=== PATIENT | male | born 1945 | race Caucasian/White ===

== ENCOUNTER 2017-02-17 16:28 | Observation (INO) | payer MEDICARE, BC ==
--- NOTE | 2017-02-17 16:49 | Emergency Department Record ---
History of Present Illness - General Chief Complaint: Chest Pain Stated Complaint: CHEST PAIN Time Seen by Provider: 02/17/17 16:38 Source: Patient Mode of Arrival: Wheelchair Limitations: Physical limitation - History of Present Illness Initial Comments: The patient is here due to upper abdominal pain for the last 45 minutes that has now resolved. Initially the patient complained of chest pain but now it appears to be abdominal pain. He denied any SOB, ERNESTO, or sweating with the pain. He also denied any nausea, vomiting, or diarrhea. 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 Due to the CVA he does have trouble communicating. Onset/Timin -: Minutes(s) Onset: During rest Severity: Moderate Severity scale (1-10): 6 - Related Data Allergies Allergy/AdvReac Type Severity Reaction Status Date / Time No Known Drug Allergies Allergy Verified 04/19/16 08:12 Travel Screening - Travel/Exposure Within Last 30 Days Have you traveled within the last 30 days?: No - Travel/Exposure Within Last Year Have you traveled outside the [place] in the last year?: No - Additonal Travel Details Have you been exposed to anyone with a communicable illness?: No Review of Systems Constitutional: Denies: Chills, Fever Eyes: Denies: Eye discharge ENT: Denies: Congestion Respiratory: Denies: Cough, Dyspnea Past Medical History - SOCIAL HISTORY Smoking Status: Former smoker Alcohol Use: None Drug Use: None - RESPIRATORY Hx Respiratory Disorders: No - CARDIOVASCULAR Hx Cardio Disorders: Yes Hx Cardiac Cath: Yes Hx Hypertension: Yes Hx Coronary Stent: Yes Hx Percutaneous Transluminal Coronary Angioplasty (PTCA): Yes (10 yrs ago) - NEURO Hx Neuro Disorders: Yes Hx CVA: Yes 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 negative: Tenderness - Respiratory Respiratory exam: Normal lung sounds bilaterally. negative: Respiratory distress - Cardiovascular Cardiovascular Exam: Regular rate, Normal rhythm, Normal heart sounds - GI/Abdominal GI/Abdominal exam: Soft, Normal bowel sounds. negative: Tenderness - Extremities Extremities exam: Normal inspection, Normal capillary refill. negative: Tenderness - Neurological Neurological exam: Alert, Motor sensory deficit (R sided weakness (chronic)) Course Vital Signs 02/17/17 16:32 Temperature 97.9 F Pulse Rate 60 Respiratory 18 Rate Blood Pressure 161/76 Pulse Ox 97 - Reevaluation(s) Reevaluation #1: The patient is doing very well at this time. He is pain free and resting comfortably. 02/17/17 17:29 Reevaluation #2: The patient is doing very well at this time. He is pain free and denies any problems. Again it is very difficult to determine what exact type of pain he was experiencing but again it has resolved. I did discuss the need to keep the patient in the hospital overnight and he agreed to the plan. I also did discuss the case with Cassy BEACH) and she accepted the patient for Dr. Davidson. 02/17/17 18:00 Medical Decision Making - Data Complexity MDM Data: Labs Ordered and/or Reviewed, X-Ray Ordered and/or Reviewed, EKG Ordered and/or Reviewed - Lab Data Result diagrams: 02/18/17 06:12 02/18/17 06:12 - EKG Data -: EKG Interpreted by Me EKG: No Acute Changes, Unchanged From Previous - Radiology Data Radiology results: Report reviewed (CXR: No acute changes.) Disposition Disposition: Admit Clinical Impression: Chest pain at rest Disposition: Still a Patient at [facility] Decision to Admit: Admit from ER Decision to Admit Date: 02/17/17 Decision to Admit Time: 18:02 Accepting Physician: Lety Time Discussed w/Accepting Physician: 18:02 Condition: (2) Stable Time of Disposition: 18:02 Quality - Quality Measures Quality Measures: N/A - Blood Pressure Screening View Details: Yes Does Patient Have Any of the Following: Active Dx of HTN Blood Pressure Classification: Hypertensive Reading Systolic Measurement: 161 Diastolic Measurement: 76 Screening for High Blood Pressure: Patient Exclusion, Hx of HTN [G9744] Pre-Hypertensive Follow-up Interventions: Referral to alternative/primary care provider.
[2017-02-17 17:10] LABS: BASO % 0.4 % (0-6); EOS % 2.1 % (0-6); GRAN % 55.4 % (47-80); HEMATOCRIT 43.6 % (42.0-52.0); HEMOGLOBIN 15.4 gm/dl (14.0-18.0); LYMPH % 31.3 % (16-45); MEAN CORPUSCULAR HEMOGLOBIN 30.4 pg (27-33); MEAN CORPUSCULAR HGB CONC 35.3 g/dl (32-36); MEAN PLATELET VOLUME 10.1 fl (7.4-10.4); MONO % 10.8 % (0-9); PLATELET COUNT 197 K/uL (130-400); RED BLOOD COUNT 5.07 M/uL (4.40-5.70); RED CELL DISTRIBUTION WIDTH 13.6 % (11.5-14.5)
[2017-02-17 17:21] LABS: INR 1.05; PARTIAL THROMBOPLASTIN TIME 25.7 SECONDS (24.5-39.1); PROTHROMBIN TIME (PATIENT) 11.3 SECONDS (9.5-12.1)
[2017-02-17 17:28] LABS: ALBUMIN 4.6 g/dL (4.0-5.0); ALKALINE PHOSPHATASE 24 U/L (40-129); ALT/SGPT 21 U/L (<41); AST/SGOT 23 U/L (10.0-50.0); BLOOD UREA NITROGEN 22 mg/dL (8-23); CKMB 3.6 ng/mL (<6.73); CREATINE PHOSPHOKINASE 116 U/L (39-308); CREATININE 0.9 mg/dL (0.7-1.2); EST GLOMERULAR FILTRATION RATE > 60 mL/min; GLUCOSE,RANDOM 77 mg/dL (74-109); LIPASE 31 U/L (13-60); TOTAL PROTEIN 7.4 g/dL (6.6-8.7)
[2017-02-17 17:29] LABS: BILIRUBIN,DIRECT < 0.2 mg/dL (0-0.3)
[2017-02-17 17:40] LABS: TROPONIN I < 0.30 ng/mL (0.00-0.300)
[2017-02-17] MEDS ORDERED: POTASSIUM CHLORIDE 20 MEQ TABLET PO ONE (17:47)
[2017-02-17] MEDS ORDERED: ASPIRIN 325 MG TABLET PO ONE (18:04)
[2017-02-17] MEDS ORDERED: ACETAMINOPHEN 500 MG TABLET PO PRN (19:22)
[2017-02-17] MEDS ORDERED: [UNRECOGNIZED DRUG - SUPPLY] MC SCH (19:22)
[2017-02-17] MEDS: CHLORTHALIDONE 25 MG TABLET PO SCH (21:38)
[2017-02-17] MEDS: ATENOLOL 50 MG TABLET PO SCH (21:38)
[2017-02-17] MEDS ORDERED: SIMVASTATIN 20 MG TABLET PO SCH (22:00)
[2017-02-17] MEDS ORDERED: GABAPENTIN 100 MG CAPSULE PO SCH (22:00)
--- NOTE | 2017-02-18 06:37 | History & Physical ---
History of Present Illness - Date of Service Date of Service for History & Physical: 02/18/17 - History of Present Illness Admitting Diagnosis: 1. Chest and Abdominal pain, R/O AL. History of Present Illness: 71 yo male admitted with cc of chest/ upper abdominal pain. pmhx of cva w/ subsequent right sided paralysis and expressive aphasia, h/o AL (s/p 3 stents, most recently, 1 stent placed 02/2016). According to ED documentation, patient presented with 45 minutes of upper abd/ chest pain. This resolved on its own. He denied any SOB, ERNESTO, or sweating with the pain. He also denied any nausea, vomiting, or diarrhea. Upon presentation, HR 60, BP 161/76, RR 18, Ox 97% RA. CBC/CMP relatively unremarkable. Potassium 3.1. lipase WNL. CXR: borderline CMG w/o pulm HTN, NAP ow. EKG:sinus rhythm, no new ischemic changes. Patient given regular ASA and 40 mEq of Potassium. Placed on groundwater monitoring technician and admitted for medical management. 02/18- patient sitting up comfortably in bed with daughter at bedside. he denies any CP/AP since prior to arrival to the ED. states appetite is normal and tolerated breakfast. Normal GI/ function. no n/v, abd pain, fever, chills, diaphoresis, cough, congestion, davila, dizziness, lightheadedness, visual changes or new weakness. Patient reports follow with both [facility] and [facility]. States he had one cardiac stent placed while at [facility]. PCP: [facility] Travel Screening - Travel/Exposure Within Last 30 Days Have you traveled within the last 30 days?: No - Travel/Exposure Within Last Year Have you traveled outside the [place] in the last year?: No - Additonal Travel Details Have you been exposed to anyone with a communicable illness?: No Review of Systems Constitutional: Denies: Chills, Fever Eyes: Denies: Eye discharge ENT: Denies: Congestion Respiratory: Denies: Cough, Dyspnea Cardiovascular: Denies: Chest pain, Dyspnea on exertion, Edema Gastrointestinal: Denies: Abdominal pain, Diarrhea, Nausea, Vomiting Genitourinary: Denies: Dysuria Musculoskeletal: Denies: Back pain Neurological: Denies: Confusion, Headache Hematological/Lymphatic: Denies: Easy bruising Past Medical History - SOCIAL HISTORY Smoking Status: Former smoker Alcohol Use: None Drug Use: None - RESPIRATORY Hx Respiratory Disorders: No - CARDIOVASCULAR Hx Cardio Disorders: Yes Hx Cardiac Cath: Yes Hx Hypertension: Yes Hx Coronary Stent: Yes Hx Percutaneous Transluminal Coronary Angioplasty (PTCA): Yes (10 yrs ago) - NEURO Hx Neuro Disorders: Yes Hx CVA: Yes 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) - GI Hx GI Disorders: No - Hx Genitourinary Disorders: No - ENDOCRINE Hx Endocrine Disorders: No - MUSCULOSKELETAL Hx Musculoskeletal Disorders: No - PSYCH Hx Psych Problems: No - HEMATOLOGY/ONCOLOGY Hx Hematology/Oncology Disorders: No Family Medical History Any Significant Family History?: No H&P Meds/Allergies - Allergies Allergies: Allergies Allergy/AdvReac Type Severity Reaction Status Date / Time No Known Drug Allergies Allergy Verified 04/19/16 08:12 - Active Medications Active Medications: Current Medications Acetaminophen (Tylenol 500mg Tab) 500 mg PO Q6H PRN PRN Reason: PAIN/TEMP Aspirin (Ecotrin (Ec)) 325 mg PO DAILY [facility] Atenolol (Tenormin) 50 mg PO BID [facility] Last Admin: 02/17/17 21:38 Dose: 50 mg Chlorthalidone (Chlorthalidone) 25 mg PO BID [facility] Last Admin: 02/17/17 21:38 Dose: 25 mg Clopidogrel Bisulfate (Plavix) 75 mg PO DAILY [facility] Gabapentin (Neurontin) 200 mg PO QHS [facility] Last Admin: 02/17/17 21:38 Dose: 200 mg Simvastatin (Zocor) 20 mg PO QHS [facility] Last Admin: 02/17/17 21:38 Dose: 20 mg Physical Exam - Vital Signs Vital Signs: Vital Signs - Last 24 Hrs Temp Pulse Resp BP Pulse Ox 02/18/17 06:10 98.2 F 55 L 18 128/65 94 L 02/18/17 06:05 96 02/18/17 03:35 97.7 F 52 L 18 135/67 95 02/17/17 21:59 61 20 - General General Appearance: Alert, Cooperative, No acute distress Limitations: Physical limitation (2/2 right sided paralysis) - Head Head exam: Atraumatic, Normocephalic - Eye Eye exam: Normal appearance, PERRL - Neck Neck exam: Normal inspection, Full ROM. negative: Tenderness - Respiratory Respiratory exam: Normal lung sounds bilaterally. negative: Respiratory distress - Cardiovascular Cardiovascular Exam: Regular rate, Normal rhythm, Normal heart sounds - GI/Abdominal GI/Abdominal exam: Soft, Normal bowel sounds. negative: Tenderness - Extremities Extremities exam: Normal inspection, Normal capillary refill. negative: Tenderness - Neurological Neurological exam: Alert, Motor sensory deficit (R sided weakness (chronic)) Results - Labs Result Diagrams: 02/18/17 06:12 02/18/17 06:12 Labs Last 24 Hours: Laboratory Results - last 24 hr 02/17/17 02/17/17 21:53 21:53 CK-MB (CK-2) 3.5 Troponin I < 0.30 VTE H&P Assessment - Risk for VTE Risk for VTE: Yes Risk Level: Moderate Risk Assessment Date: 02/18/17 Risk Assessment Time: 10:00 VTE Orders Placed or Will Be Placed: Yes Plan - Detailed Diagnosis and Plan (1) Chest pain at rest Current Visit: Yes Status: Acute Base Code: R07.9 - CHEST PAIN, UNSPECIFIED Comment: 02/18- MSK vs. GI. vs. Cardiac vs. other? Patient reports epigastric/chest pain prior to arrival to the ED. Aggravated by thoracic spine back brace. relieved one back brace was removed. EKG: no acute changes, CXR: borderline CMG w/o pulm htn, NAP. - regular ASA given in ED - home medications continued - CE negative x 3 - potassium normalized follow 40 mEq of PO potassium - Cardiac consult - groundwater monitoring technician - VS Q4H - cardiac diet - anticipate D/C if cleared by Cardiology (2) History of CVA (cerebrovascular accident) Current Visit: Yes Status: Acute Base Code: Z86.73 - PRSNL HX OF TIA (TIA), AND CEREB INFRC W/O RESID DEFICITS Comment: 02/18- continue home medications. no change from baseline. (3) Full code status Current Visit: Yes Status: Acute Base Code: Z78.9 - OTHER SPECIFIED HEALTH STATUS Comment: 02/18- pt is full code
[2017-02-18 06:43] LABS: BASO % 0.5 % (0-6); EOS % 2.9 % (0-6); GRAN % 60.6 % (47-80); HEMATOCRIT 43.6 % (42.0-52.0); HEMOGLOBIN 15.3 gm/dl (14.0-18.0); LYMPH % 23.9 % (16-45); MEAN CELL VOLUME 86.5 fl (81-97); MEAN CORPUSCULAR HEMOGLOBIN 30.4 pg (27-33); MEAN CORPUSCULAR HGB CONC 35.1 g/dl (32-36); MEAN PLATELET VOLUME 10.3 fl (7.4-10.4); MONO % 12.1 % (0-9); PLATELET COUNT 183 K/uL (130-400); RED BLOOD COUNT 5.04 M/uL (4.40-5.70); RED CELL DISTRIBUTION WIDTH 13.6 % (11.5-14.5); WHITE BLOOD COUNT W/O DIFF 5.5 K/uL (4.2-12.2)
[2017-02-18 06:45] LABS: ALB/GLOB RATIO 1.4 (1.1-1.8); ALBUMIN 3.9 g/dL (4.0-5.0); ALKALINE PHOSPHATASE 22 U/L (40-129); ALT/SGPT 18 U/L (<41); AST/SGOT 21 U/L (10.0-50.0); BLOOD UREA NITROGEN 17 mg/dL (8-23); CREATININE 0.8 mg/dL (0.7-1.2); EST GLOMERULAR FILTRATION RATE > 60 mL/min; GLUCOSE,RANDOM 109 mg/dL (74-109); TOTAL PROTEIN 6.6 g/dL (6.6-8.7)
--- NOTE | 2017-02-18 07:21 | RADIOLOGY REPORT ---
EXAM: PORTABLE CHEST HISTORY: ACUTE ONSET OF CHEST PAIN. TECHNIQUE: A single mobile upright view of the chest was obtained. Comparison: Two view chest radiographic examination dated 03/03/16. FINDINGS: The heart projects at the upper limits of normal in size. No pulmonary venous hypertension is seen. No new lung consolidation, costophrenic angle blunting or pneumothorax is seen. There are degenerative changes of the visualized spine and shoulder girdles. The thoracic aorta is tortuous and atherosclerotic. IMPRESSION: BORDERLINE CARDIOMEGALY WITHOUT PULMONARY VENOUS HYPERTENSION. NO EVIDENCE OF AN ACUTE PULMONARY PROCESS. JOB NUMBER: [id number] MTDD
[2017-02-18] MEDS: ATENOLOL 50 MG TABLET PO SCH (09:59)
[2017-02-18] MEDS ORDERED: CLOPIDOGREL 75MG TABLET PO SCH (10:00)
[2017-02-18] MEDS ORDERED: TICAGRELOR 60 MG PO SCH (10:00)
[2017-02-18] MEDS ORDERED: ASPIRIN 325 MG TAB ENTERIC-COATED PO SCH (10:00)
[2017-02-18] MEDS: CHLORTHALIDONE 25 MG TABLET PO SCH (10:00)
--- NOTE | 2017-02-18 11:26 | Discharge Summary ---
Providers Discharge Summary Date: 02/18/17 Date of admission: 02/17/17 20:46 Expected Date of Discharge: 02/18/17 Attending physician: Gomez Davidson Consults: Consult Orders 02/18/17 10:24 Consult - Cardiology NOW Consulting Provider: Rickie Prasad Physician Instructions: Reason For Exam: chest pain Does pt have current mechanical assembly technician?: Unknown Physical Exam - Vital Signs Vital Signs: Vital Signs - Last 24 Hrs Temp Pulse Resp BP Pulse Ox 02/18/17 10:00 97.8 F 58 L 18 126/71 95 02/18/17 09:00 16 02/18/17 06:10 98.2 F 55 L 18 128/65 94 L 02/18/17 06:05 96 02/18/17 03:35 97.7 F 52 L 18 135/67 95 02/17/17 21:59 61 20 - General General Appearance: Alert, Cooperative, No acute distress Limitations: Physical limitation (2/2 right sided paralysis) - Head Head exam: Atraumatic, Normocephalic - Eye Eye exam: Normal appearance, PERRL - Neck Neck exam: Normal inspection, Full ROM. negative: Tenderness - Respiratory Respiratory exam: Normal lung sounds bilaterally. negative: Respiratory distress - Cardiovascular Cardiovascular Exam: Regular rate, Normal rhythm, Normal heart sounds - GI/Abdominal GI/Abdominal exam: Soft, Normal bowel sounds. negative: Tenderness - Extremities Extremities exam: Normal inspection, Normal capillary refill. negative: Tenderness - Neurological Neurological exam: Alert, Motor sensory deficit (R sided weakness (chronic)) Hospitalization - Hospitalization Admission Diagnosis: 1. Chest and Abdominal pain, R/O OK. - Problem List/Discharge Diagnosis (1) Chest pain at rest Current Visit: Yes Status: Acute Base Code: R07.9 - CHEST PAIN, UNSPECIFIED Comment: 02/18- MSK vs. GI. vs. Cardiac vs. other? Patient reports epigastric AP/chest pain prior to arrival to the ED. I suspect related to his thoracic back brace as pain alleviated once this was removed. EKG: no acute ischemic changes, CXR: borderline CMG w/o pulm htn, NAP. CE negative x 3. - continue home medications - CE negative x 3 - potassium normalized follow 40 mEq of PO potassium - patient evaluated by Dr. Prasad today, who agree's with follow up as outpatient. - patient will f/up with ZACHARY Najera at 1020. - he will talk with family re which cardiology group he'd like to follow with. I ask that he call and schedule a follow up visit within 4-6 weeks. (2) History of CVA (cerebrovascular accident) Current Visit: Yes Status: Acute Base Code: Z86.73 - PRSNL HX OF TIA (TIA), AND CEREB INFRC W/O RESID DEFICITS Comment: 02/18- continue home medications. (3) Full code status Current Visit: Yes Status: Acute Base Code: Z78.9 - OTHER SPECIFIED HEALTH STATUS Comment: 02/18- pt remained full code - Hospitalization Course Disposition: Home, Self-Care Hospital Course: 71 yo male admitted with cc of chest/ upper abdominal pain. pmhx of cva w/ subsequent right sided paralysis and expressive aphasia, h/o OK (s/p 3 stents, most recently, 1 stent placed 02/2016). According to ED documentation, patient presented with 45 minutes of upper abd/ chest pain. This resolved on its own. He denied any SOB, ERNESTO, or sweating with the pain. He also denied any nausea, vomiting, or diarrhea. Upon presentation, HR 60, BP 161/76, RR 18, Ox 97% RA. CBC/CMP relatively unremarkable. Potassium 3.1. lipase WNL. CXR: borderline CMG w/o pulm HTN, NAP ow. EKG:sinus rhythm, no new ischemic changes. Patient given regular ASA and 40 mEq of Potassium. Placed on panel monitor and admitted for medical management. 02/18- patient sitting up comfortably in bed with daughter at bedside. he denies any CP/AP since prior to arrival to the ED. states appetite is normal and tolerated breakfast. Normal GI/ function. no n/v, abd pain, fever, chills, diaphoresis, cough, congestion, davila, dizziness, lightheadedness, visual changes or new weakness. Patient reports follow with both [facility] and [facility]. States he had one cardiac stent placed while at [facility] [place]. PCP: C 02/18- evaluated by Dr. Osmar MD ([facility]). Abnormal Labs: Abnormal Lab Results 02/18/17 02/18/17 Range/Units 06:12 06:12 Monocytes % 12.1 H (0-9) % Alkaline Phosphatase 22 L (40-129) U/L Albumin 3.9 L (4.0-5.0) g/dL Condition at Discharge: (2) Stable Discharge Medications - Discharge Medications Home Medications: Ambulatory Orders Multivitamin [Multivitamins] 1 each PO DAILY tab 06/16/15 [Last Taken 04/19/16] Discharge Plan - Discharge Instructions Activity at Discharge: Increase Activity as Tolerated Diet at Discharge: Regular Diet Additional Instructions: Continue all home medications. Follow up with ZACHARY Najera, at 1020 at the [facility] a cardiology group you'd like to continue to follow with. I ask that you contact their office immediately to schedule a hospital follow up visit within 4-6 weeks. Return re any new or worsening symptoms. Quality Measures - Quality Measures Quality Measures: Advance Directives, Documentation of Current Medications in Medical Record, Elder Maltreatment Screen and Follow-Up Plan, Screening for High Blood Pressure and F/U Documented - Current Medications Quality Measure: Measure #130: Documentation of Current Medications Documentation of Current Medications: <Current Medications Documented/Reviewed> [G8427] - Blood Pressure Screening Quality Measure: Screening for High Blood Pressure and Follow-Up Documented Does Patient Have Any of the Following: No, Active Dx of HTN Blood Pressure Classification: Hypertensive Reading Systolic Measurement: 161 Diastolic Measurement: 76 Screening for High Blood Pressure: Patient Exclusion, Hx of HTN [G9744] - Advance Directives Quality Measure: Measure #47: Care Plan Advance Directives Established: No Advance Directives Information Provided To Patient: No Advance Directives on File: No Living Will: No Power of Performance Improvement Coordinator: No Advance Care Planning: <Care Plan/Decision Maker Documented; Discussed & Documented> [1123F] - Elder Abuse Suspicion Index Screening: Elder Abuse Suspicion Index Screening Rely on people for bathing, dressing, shopping, banking, etc: No Prevented from getting food, clothes, medication, etc: No Made to feel shamed or threatened by someone: No Forced to sign papers or use money against will: No Feel afraid, touched in ways not wanted or hurt physically: No Poor eye contact, withdrawn, malnourished, cuts or bruises: No Screening Result: Negative result EASI Reference Information: Giacomo GONZALEZ, Belinda C, Shantanu D, Judy Mckinnon.Development and validation of a tool to assist physicians identification of elder abuse: The Elder Abuse Suspicion Index (EASI ). Journal of Elder Abuse and Neglect, 2008; 20 (3): 276-300. - Elder Maltreatment Screen Quality Measures: Elder Maltreatment Screen and Follow-Up Plan Elder Maltreatment Screen: <Negative, No Follow-Up Plan Required> [G8734]
--- NOTE | 2017-02-18 12:20 | Medical Records Consult ---
DATE OF CONSULTATION: 02/18/2017 HISTORY OF PRESENT ILLNESS: The patient is a 71-year-old gentleman who was a well-established patient of ours last being seen in our office in June 2014. At that time, he was stable. Dr. Knuz was taking care of him. He had a normal nuclear stress test without any ischemia. He had previously had stents placed in 2005 by members of our group I believe. He had a significant stroke in 1988 with a residual right hemiparesis and expressive aphasia. He also has hyperlipidemia and hypertension. He was brought to the emergency room yesterday after experiencing chest pain at home. He was working at his workbench, had a support brace in place. He started having chest pain. He took it off and the chest pain resolved. He came to the emergency room and was admitted. EKG does not show any acute changes. Troponins are negative. His chest pain has not recurred. He apparently had an abnormal nuclear stress test about 6 months ago at [facility] and was transferred to [facility] and had a heart cath and received a stent. I do not have those records for review. He denies any recent PND or orthopnea. He is anxious to go home. ALLERGIES: None known. MEDICATIONS: According to our records: 1. Tenoretic 50/25 once a day. 2. Zetia 10 mg a day. 3. Pravastatin 40 mg a day. 4. Aspirin once a day. ADMITTING MEDICATIONS: 1. Aspirin 325 mg a day. 2. Atenolol 50 mg b.i.d. 3. Chlorthalidone 25 mg b.i.d. 4. Plavix 75 mg a day. 5. Simvastatin 20 mg a day. 6. Neurontin 200 mg a day. PAST MEDICAL HISTORY: See HPI. CHILDHOOD ILLNESS: Measles, chickenpox. PAST SURGICAL HISTORY: Carotid artery surgery, hernia x3, appendectomy. SOCIAL HISTORY: Former smoker. Alcohol use none. FAMILY HISTORY: Unknown. REVIEW OF SYSTEMS: General: Feels well. Anxious to go home. Integument: Denies any change in hair or nails, rashes, or skin lesions. Eyes: No recent blurred vision, eye pain, discharge. Ears, Nose, Throat, Mouth: Denies hearing loss, epistaxis, hoarseness, difficulty speaking. Respiratory: Denies cough, sputum production, hemoptysis. Cardiovascular: See HPI. Abdomen: Constipation. Negative for melena or hematochezia. : Positive for frequency. Negative for dysuria. Musculoskeletal: Positive for generalized hip pain. Neurological: Right-sided weakness with expressive aphasia. Psychiatric: No history of depression, change in cognitive function. Endocrine: Positive for hyperlipidemia. Negative for diabetes, thyroid disease. Hematology: Denies bleeding disorder. PHYSICAL EXAMINATION: VITAL SIGNS: Per nursing notes, reviewed and confirmed. Blood pressure 135/60, pulse 52, temp 97.7. GENERAL: An obese white male with obvious right hemiparesis sitting in a chair in no acute distress. HEAD, EYES, EARS, NOSE, THROAT: Normocephalic and atraumatic. Pupils are equal, round, and reactive to light and accommodation. EOMs are intact. Conjunctivae and sclerae clear. NECK: Supple. Healed endarterectomy scar. No obvious bruits. CHEST: Reveals increased AP diameter. Slightly decreased breath sounds at the base. No wheezing. CARDIOVASCULAR: Very distant heart sounds. No lifts or gallops, heaves, or murmurs noted. PMI is not palpable. ABDOMEN: Soft, nontender. GENITORECTAL: Deferred. EXTREMITIES: Decreased pulses in lower extremities. There is trace edema. There is no calf tenderness. NEUROLOGIC: Right hemiparesis with expressive aphasia. DIAGNOSTIC DATA: EKG is normal. Troponins are negative. IMPRESSION: 1. Chest pain. Does not appear to be ischemic in nature. Most likely related to back brace. 2. Atherosclerotic cardiovascular disease, status post recent stenting. 3. Previous stroke with residual right hemiparesis, expressive aphasia. 4. Dyslipidemia. PLAN: The patient can be discharged from the hospital. Follow up with the cardiology group of his choice. I explained this to him and his daughter as well as the JOSE attending the patient. I would continue him on his current drug regimen. MTDD
== END 2017-02-18 13:12 | disposition home or self-care (01) ==
LOC: ER 16:28 → MEDSURG 20:46
PROVIDERS: ADMIT Internal Medicine; ATTEND Internal Medicine
DX: R07.9 Chest pain, unspecified (principal); E78.5 Hyperlipidemia, unspecified; I10 Essential (primary) hypertension; I69.390 Apraxia following cerebral infarction; I69.359 Hemiplegia and hemiparesis following cerebral infarction affecting unspecified side; E78.00 Pure hypercholesterolemia, unspecified
CPT/HCPCS: 99285; 99284; 82550; 83690; 85025 ×2; 85730; 85610; 80076; 82553 ×2; 84484 ×2; 80048; 80053; 71010; 94760 ×2; 93005 ×2; 93010 ×2; G0378 ×2; J3490; 99220

== ENCOUNTER 2017-07-20 10:28 | Emergency (ER) | payer MEDICARE, BC ==
--- NOTE | 2017-07-20 11:06 | Emergency Department Record ---
History of Present Illness - General Chief Complaint: Chest Pain Stated Complaint: SOB/CHEST DISCOMFORT/ARM WEAKNESS Time Seen by Provider: 07/20/17 10:39 Source: Patient, RN notes reviewed Mode of Arrival: Ambulatory - History of Present Illness Initial Comments: patient developed chest pain and left arm pain and it lasted for 1-2 minutes about one hour ago. No chest pain now and he has had cardiac stents place jun 2016 at [facility] by Dr. Harrison. Patient denies diaphoresis and indigestion. 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 Hyperchol, hypertension, currently patient on augmentin for a sinsus infection which is better now started 07/18/2017 10 day script. Onset/Timin -: Minutes(s) - Related Data Allergies Allergy/AdvReac Type Severity Reaction Status Date / Time No Known Drug Allergies Allergy Unverified 07/18/17 11:10 Travel Screening - Travel/Exposure Within Last 30 Days Have you traveled within the last 30 days?: No - Travel/Exposure Within Last Year Have you traveled outside the [place] in the last year?: No - Additonal Travel Details Have you been exposed to anyone with a communicable illness?: No - Travel Symptoms Symptom Screening: None Review of Systems Reviewed: No additional complaints except as noted below Constitutional: Reports: As per HPI. Denies: Chills, Fever, Malaise, Night sweats, Weakness, Weight change Eyes: Reports: As per HPI. Denies: Eye discharge, Eye pain, Photophobia, Vision change ENT: Reports: As per HPI. Denies: Congestion, Dental pain, Ear pain, Epistaxis , Hearing loss, Throat pain Respiratory: Reports: As per HPI. Denies: Cough, Dyspnea, Hemoptysis, Stridor, Wheezes Cardiovascular: Reports: As per HPI, Chest pain. Denies: Arrhythmia, Dyspnea on exertion, Edema, Murmurs, Orthopnea, Palpitations, Paroxysmal nocturnal dyspnea, Rheumatic Fever, Syncope Endocrine: Reports: As per HPI. Denies: Fatigue, Heat or cold intolerance, Polydipsia, Polyuria Gastrointestinal: Reports: As per HPI. Denies: Abdominal pain, Constipation, Diarrhea, Hematemesis, Hematochezia, Melena, Nausea, Vomiting Genitourinary: Reports: As per HPI. Denies: Dysuria, Frequency, Hematuria, Incontinence, Retention, Testicular pain, Testicular mass, Urgency Musculoskeletal: Reports: As per HPI. Denies: Arthralgia, Back pain, Gout, Joint swelling, Myalgia, Neck pain Skin: Reports: As per HPI. Denies: Bruising, Change in color, Change in hair/ nails, Lesions, Pruritus, Rash Neurological: Reports: As per HPI. Denies: Abnormal gait, Confusion, Headache, Numbness, Paresthesias, Seizure, Tingling, Tremors, Vertigo, Weakness Psychiatric: Reports: As per HPI. Denies: Anxiety, Auditory hallucinations, Depression, Homicidal thoughts, Suicidal thoughts, Visual hallucinations Hematological/Lymphatic: Reports: As per HPI. 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) - GI Hx GI Disorders: No - Hx Genitourinary Disorders: No - ENDOCRINE Hx Endocrine Disorders: No - MUSCULOSKELETAL Hx Musculoskeletal Disorders: No - PSYCH Hx Psych Problems: No - HEMATOLOGY/ONCOLOGY Hx Hematology/Oncology Disorders: No Family Medical History Any Significant Family History?: No Family Hx Comment (NOT TO BE USED IN PLACE OF ITEMS BELOW): unknown Physical Exam - General General Appearance: Alert, Oriented x3, Cooperative, No acute distress - Head Head exam: Normal inspection - Eye Eye exam: Normal appearance, PERRL Pupils: Normal accommodation - ENT ENT exam: Normal exam, Mucous membranes moist, Normal external ear exam, Normal orophraynx, TM's normal bilaterally Ear exam: Normal external inspection. negative: External canal tenderness Nasal Exam: Normal inspection. negative: Discharge, Sinus tenderness Mouth exam: Normal external inspection, Tongue normal Teeth exam: Normal inspection. negative: Dental caries Throat exam: Normal inspection. negative: Tonsillar erythema, Tonsillar exudate - Neck Neck exam: Normal inspection, Full ROM. negative: Tenderness - Respiratory Respiratory exam: Normal lung sounds bilaterally. negative: Respiratory distress - Cardiovascular Cardiovascular Exam: Regular rate, Normal rhythm, Normal heart sounds - GI/Abdominal GI/Abdominal exam: Soft, Normal bowel sounds. negative: Tenderness - Rectal Rectal exam: Deferred - exam: Deferred - Extremities Extremities exam: Normal inspection, Full ROM, Normal capillary refill. negative: Tenderness - Back Back exam: Reports: Normal inspection, Full ROM. Denies: Muscle spasm, Rash noted, Tenderness - Neurological Neurological exam: Alert, Normal gait, Oriented X3, Reflexes normal - Psychiatric Psychiatric exam: Normal affect, Normal mood - Skin Skin exam: Dry, Intact, Normal color, Warm Course Vital Signs 07/20/17 10:43 Temperature 97.3 F L Pulse Rate 55 L Respiratory 24 Rate Blood Pressure 173/78 Pulse Ox 96 no chest pain now - Reevaluation(s) Reevaluation #1: discussed inpatient vs out patient care and he wants to be outpatient and will have him follow up with Dr. Harrison next week 07/20/17 16:45 Medical Decision Making - Data Complexity MDM Data: EKG Ordered and/or Reviewed (NSR, similiar to 02/2017 , No acute changes) - Lab Data Result diagrams: 07/20/17 11:15 07/20/17 11:15 Disposition Clinical Impression: Chest wall pain Chest pain Qualifiers: Chest pain type: unspecified Qualified Code(s): R07.9 - Chest pain, unspecified CAD (coronary artery disease) Qualifiers: Coronary Disease-Associated Artery/Lesion type: unspecified vessel or lesion type [place] vs. transplanted heart: [place] heart Associated angina: with unspecified angina Qualified Code(s): I25.119 - Atherosclerotic heart disease of [place] coronary artery with unspecified angina pectoris Disposition: Home, Self-Care Condition: (1) Good Instructions: Costochondritis (ED), Angina (ED) Additional Instructions: follow up with Dr. Harrison next week follow up with Dr. Mckeon next week return if more pain tylenol for pain Forms: Patient Portal Access Time of Disposition: 16:52 Quality - Quality Measures Quality Measures: N/A - Blood Pressure Screening Does Patient Have Any of the Following: No, Active Dx of HTN Blood Pressure Classification: Hypertensive Reading Systolic Measurement: 173 Diastolic Measurement: 78 Screening for High Blood Pressure: Patient Exclusion, Hx of HTN [G9744]
[2017-07-20] MEDS: ASPIRIN 81 MG CHEWABLE TABLET PO ONE (11:12)
[2017-07-20 11:28] LABS: BASO % 0.2 % (0-6); EOS % 2.4 % (0-6); GRAN % 63.2 % (47-80); HEMATOCRIT 45.1 % (42.0-52.0); HEMOGLOBIN 15.6 gm/dl (14.0-18.0); LYMPH % 24.8 % (16-45); MEAN CELL VOLUME 84.8 fl (81-97); MEAN CORPUSCULAR HEMOGLOBIN 29.3 pg (27-33); MEAN CORPUSCULAR HGB CONC 34.6 g/dl (32-36); MONO % 9.4 % (0-9); PLATELET COUNT 176 K/uL (130-400); RED BLOOD COUNT 5.32 M/uL (4.40-5.70); RED CELL DISTRIBUTION WIDTH 13.5 % (11.5-14.5); WHITE BLOOD COUNT W/O DIFF 4.9 K/uL (4.2-12.2)
[2017-07-20 11:51] LABS: BLOOD UREA NITROGEN 23 mg/dL (8-23); CREATININE 0.8 mg/dL (0.7-1.2); EST GLOMERULAR FILTRATION RATE > 60 mL/min
[2017-07-20 11:54] LABS: GLUCOSE,RANDOM 142 mg/dL (74-109)
[2017-07-20 11:59] LABS: CKMB 4.3 ng/mL (<6.73)
[2017-07-20 15:47] LABS: CKMB 3.9 ng/mL (<6.73)
--- NOTE | 2017-07-21 18:59 | RADIOLOGY REPORT ---
EXAM: CHEST 2 VIEWS HISTORY: SUDDEN ONSET OF CHEST PAIN AND CHEST HEAVINESS, LEFT ARM NUMBNESS. TECHNIQUE: PA and lateral views. COMPARISON: Portable chest 02/17/17. FINDINGS: Heart size is within normal limits. Lungs appear expanded with no definite acute infiltrate seen. No pleural effusion or pneumothorax evident. Mild kyphoscoliosis with anterior wedging of several mid to lower thoracic vertebrae, also present on a much older lateral chest x-ray of 02/04/08. IMPRESSION: 1. NO ACUTE INFILTRATE EVIDENT. 2. MILD KYPHOSCOLIOSIS WITH CHRONIC COMPRESSION OF MULTIPLE MID TO LOWER THORACIC VERTEBRAE. JOB NUMBER: [id number] [facility]
--- NOTE | 2017-07-21 19:15 | CT SCAN REPORT ---
EXAM: CT SCAN HEAD WO CONTRAST HISTORY: LEFT ARM PARALYSIS, HISTORY OF STROKE 1988. TECHNIQUE: Axial CT scan of the head performed without IV contrast. COMPARISON: Head CT 08/21/15. FINDINGS: No acute intracranial hemorrhage seen. No midline shift evident. Large area of low attenuation in the left frontotemporoparietal lobes consistent with an old infarct, as before. Generalized atrophy with some chronic -appearing deep white matter changes as well, nonspecific but likely representing some chronic small vessel deep white matter ischemic disease. However, no definite acute infarct identified today. Moderate membrane thickening in the right maxillary sinus, particularly inferior, new compared with the prior study. Moderate membrane thickening in the ethmoids bilaterally as well. Mildly prominent extraaxial CSF low attenuation along the right side of the tentorium, also present previously. Particularly on the sagittal and coronal reformatted images, this extraaxial low attenuation fluid along the right tentorium may be causing slight mass effect along the superior margin of the cerebellum. No depressed calvarial fracture evident. IMPRESSION: 1. GENERALIZED ATROPHY WITH CHRONIC-APPEARING DEEP WHITE MATTER CHANGES AND A LARGE OLD AREA OF INFARCTION IN THE LEFT CEREBRAL HEMISPHERE, BEFORE. 2. NO DEFINITE ACUTE INTRACRANIAL HEMORRHAGE OR MIDLINE SHIFT EVIDENT. 3. CHRONIC THIN EXTRAAXIAL LOW ATTENUATION FLUID OVERLYING THE TENTORIUM ON THE RIGHT APPEARING ESSENTIALLY UNCHANGED FROM 08/21/15 AND MAY BE A SMALL THIN CHRONIC SUBDURAL HYGROMA CREATING SLIGHT MASS EFFECT ON THE SUPERIOR MARGIN OF THE CEREBELLUM, PARTICULARLY SEEN ON THE SAGITTAL AND CORONAL REFORMATTED SERIES. IF NEUROLOGIC SYMPTOMS PERSIST, FOLLOW-UP MRI OF THE BRAIN WOULD BE SUGGESTED FOR FURTHER EVALUATION. 4. MODERATE MEMBRANE THICKENING IN THE INFERIOR ASPECT OF THE RIGHT MAXILLARY SINUS AND IN THE ETHMOIDS. JOB NUMBER: [id number] [facility]
== END 2017-07-20 17:20 | disposition home or self-care (01) ==
LOC: ER 10:28
DX: R07.89 Other chest pain (principal); I25.119 Atherosclerotic heart disease of native coronary artery with unspecified angina pectoris; R06.02 Shortness of breath; I69.331 Monoplegia of upper limb following cerebral infarction affecting right dominant side; I69.320 Aphasia following cerebral infarction; I10 Essential (primary) hypertension; Z98.61 Coronary angioplasty status; Z87.891 Personal history of nicotine dependence
CPT/HCPCS: 70450; 71046; 80048; 82553; 84484; 85025; 85730; 93005; 93010; 99284

== ENCOUNTER 2018-01-20 12:16 | Emergency (ER) | payer MEDICARE, BC ==
[2018-01-20] MEDS ORDERED: DIPHENHYDRAMINE HCL 50 MG/ML VIAL IVP ONE (12:31)
[2018-01-20] MEDS ORDERED: METHYLPREDNISOLONE PF 125MG/VIAL IVP ONE (12:31)
--- NOTE | 2018-01-20 12:36 | Emergency Department Record ---
History of Present Illness - General Chief complaint: Bite Insect/other Stated complaint: BEE STING Time Seen by Provider: 01/20/18 12:30 Source: Patient Mode of Arrival: Ambulatory Limitations: No limitations - History of Present Illness Initial comments: 72 yo male presents after numerous stings from ground bees. He denies chest pain, shortness or breath, lip or throat swelling. He has stings on both legs, arms and face. No history of significant bee sting reactions or anaphylaxis. He has local pain otherwise denies symptoms. MD complaint: Insect bite/sting -: Minutes(s) Location: Face, LUE, RUE, LLE, RLE Severity: Moderate Quality: Aching Consistency: Constant Improves with: None Worsens with: None Context: Witnessed insect bite Associated symptoms: Denies other symptoms Treatments Prior to Arrival: None - Related Data Previous Rx's Medication Instructions Recorded Diphenhydramine HCl [Benadryl] 25 mg PO Q6H #20 cap 01/20/18 Prednisone [Prednisone 20Mg] 20 mg PO BID #10 tab 01/20/18 Allergies Allergy/AdvReac Type Severity Reaction Status Date / Time No Known Drug Allergies Allergy Unverified 07/18/17 11:10 Review of Systems Constitutional: Denies: Chills, Fever, Malaise, Weakness Eyes: Denies: Eye discharge ENT: Denies: Congestion, Dental pain, Throat pain Respiratory: Denies: Cough, Dyspnea, Hemoptysis, Stridor, Wheezes Cardiovascular: Denies: Chest pain, Dyspnea on exertion, Edema, Palpitations, Syncope Endocrine: Denies: Fatigue Gastrointestinal: Denies: Abdominal pain, Diarrhea, Nausea, Vomiting Genitourinary: Denies: Dysuria, Frequency, Hematuria Musculoskeletal: Denies: Arthralgia, Back pain, Joint swelling, Myalgia Skin: Reports: As per HPI, Lesions, Rash Neurological: Denies: Headache, Numbness, Vertigo, Weakness Psychiatric: Denies: Anxiety Hematological/Lymphatic: Denies: Blood Clots, Easy bleeding, Easy bruising, Swollen glands Past Medical History - SOCIAL HISTORY Smoking Status: Former smoker Drug Use: None - RESPIRATORY Hx Respiratory Disorders: No - CARDIOVASCULAR Hx Cardio Disorders: Yes Hx Cardiac Cath: Yes Hx Hypertension: Yes Hx Coronary Stent: Yes Hx Percutaneous Transluminal Coronary Angioplasty (PTCA): Yes (10 yrs ago) - NEURO Hx Neuro Disorders: Yes Hx CVA: Yes 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 negative: Conjunctival injection, Periorbital swelling, Scleral icterus - ENT ENT exam: Normal exam, Mucous membranes moist, Normal orophraynx. negative: Mucous membranes dry Ear exam: Normal external inspection Nasal Exam: Normal inspection Mouth exam: Normal external inspection Teeth exam: Other (no teeth) Throat exam: Normal inspection - Neck Neck exam: Normal inspection - Respiratory Respiratory exam: Normal lung sounds bilaterally. negative: Accessory muscle use, Chest wall tenderness, Decreased breath sounds, Prolonged expiratory, Respiratory distress, Rhonchi, Stridor, Wheezes - Cardiovascular Cardiovascular Exam: Regular rate, Normal rhythm, Normal heart sounds - GI/Abdominal GI/Abdominal exam: Soft. negative: Tenderness - Rectal Rectal exam: Deferred - exam: Deferred - Extremities Extremities exam: Full ROM, Normal capillary refill. negative: Normal inspection, Pedal edema, Tenderness Image of Full Body: 1 - multipe sites of sting on both legs, localized swelling 2-3 mm, no edema 2 - site of sting, local swelling 3 - site of sting - Back Back exam: Reports: Normal inspection - Neurological Neurological exam: Alert, Oriented X3 - Psychiatric Psychiatric exam: Normal affect, Normal mood - Skin Skin exam: Erythema Course - Reevaluation(s) Reevaluation #1: 01/20/18 13:08 The patient continues to do very well. No signs of systemic symptoms. 01/20/18 14:15 The patient remains asymptomatic. We discussed home care, icing, reasons to return to the ED Disposition Disposition: Discharge Clinical Impression: Bee sting Disposition: Home, Self-Care Condition: (1) Good Instructions: Insect Bite or Sting (ED) Additional Instructions: Return to the ER if you have shortness of breath, cough, lip, tongue, or throat swelling Ice the areas you were stung. Take the prescriptions the next 5 days. Prescriptions: Diphenhydramine HCl [Benadryl] 25 mg PO Q6H #20 cap Prednisone [Prednisone 20Mg] 20 mg PO BID #10 tab Forms: Patient Portal Access Time of Disposition: 14:16 Quality - Quality Measures Quality Measures: N/A - Blood Pressure Screening Does Patient Have Any of the Following: No Blood Pressure Classification: Normal BP Reading Systolic Measurement: 106 Diastolic Measurement: 59 Screening for High Blood Pressure: < Normal BP, F/U Not Required > [G8783]
== END 2018-01-20 14:40 | disposition home or self-care (01) ==
LOC: ER 12:16
DX: T63.441A Toxic effect of venom of bees, accidental (unintentional), initial encounter (principal); M79.89 Other specified soft tissue disorders; I10 Essential (primary) hypertension; Z87.891 Personal history of nicotine dependence
CPT/HCPCS: 96374; 96375; 99284; J1200; J2930

== ENCOUNTER 2019-01-29 20:50 | Observation (INO) | payer MEDICARE, BC ==
[2019-01-29] MEDS ORDERED: ASPIRIN 81 MG CHEWABLE TABLET PO ONE (21:15)
[2019-01-29] MEDS ORDERED: NITROGLYCERIN 0.4MG SL TABLET #25 BTL SL ONE (21:19)
[2019-01-29] MEDS: NITROGLYCERIN 0.4MG SL TABLET #25 BTL SL PRN ×2 (21:23→21:28)
[2019-01-29 21:28] LABS: BASO % 0.4 % (0-6); EOS % 1.6 % (0-6); GRAN % 71.9 % (47-80); HEMATOCRIT 44.2 % (42.0-52.0); HEMOGLOBIN 15.2 gm/dl (14.0-18.0); LYMPH % 18.5 % (16-45); MEAN CELL VOLUME 86.3 fl (81-97); MEAN CORPUSCULAR HEMOGLOBIN 29.7 pg (27-33); MEAN CORPUSCULAR HGB CONC 34.4 g/dl (32-36); MEAN PLATELET VOLUME 10.7 fl (7.4-10.4); MONO % 7.6 % (0-9); PLATELET COUNT 219 K/uL (130-400); RED BLOOD COUNT 5.12 M/uL (4.40-5.70); RED CELL DISTRIBUTION WIDTH 13.6 % (11.5-14.5); WHITE BLOOD COUNT W/O DIFF 9.3 K/uL (4.2-12.2)
[2019-01-29 21:40] LABS: BLOOD UREA NITROGEN 15 mg/dL (8-23); CREATININE 0.8 mg/dL (0.7-1.2); EST GLOMERULAR FILTRATION RATE > 60 mL/min
[2019-01-29 21:41] LABS: TOTAL PROTEIN 6.9 g/dL (6.6-8.7)
[2019-01-29 21:43] LABS: GLUCOSE,RANDOM 161 mg/dL (74-109)
[2019-01-29 21:46] LABS: ALB/GLOB RATIO 1.9 (1.1-1.8); ALBUMIN 4.5 g/dL (4.0-5.0); ALKALINE PHOSPHATASE 28 U/L (40-129); ALT/SGPT 17 U/L (<41); AST/SGOT 23 U/L (10.0-50.0); CREATINE PHOSPHOKINASE 108 U/L (39-308)
[2019-01-29] MEDS ORDERED: POTASSIUM CHLORIDE 20 MEQ TABLET PO ONE (21:46)
[2019-01-29 21:48] LABS: CKMB 3.2 ng/mL (<6.73)
--- NOTE | 2019-01-30 01:41 | Emergency Department Record ---
History of Present Illness - General Chief Complaint: Chest Pain Stated Complaint: CHEST PAIN Time Seen by Provider: 01/29/19 21:00 Source: Patient Mode of Arrival: Wheelchair Limitations: Physical limitation - History of Present Illness Initial Comments: pt has cp today. no n/sob/radiation. pt is a difficult historian with speech difficulties from previous stroke Complaint: Chest pain Onset/Timin -: Hour(s) Onset: During rest Pain Location: Left chest Pain Radiation: None Severity: Moderate Severity scale (1-10): 6 Quality: Aching Consistency: Constant Improves With: Nothing Worsens With: Nothing Treatments Prior to Arrival: None - Related Data Allergies Allergy/AdvReac Type Severity Reaction Status Date / Time No Known Drug Allergies Allergy Unverified 11/13/18 16:23 Travel Screening - Travel/Exposure Within Last 30 Days Have you traveled within the last 30 days?: No - Travel Symptoms Symptom Screening: None Review of Systems Reviewed: No additional complaints except as noted below Constitutional: Reports: As per HPI. Denies: Chills, Fever, Malaise, Night sweats, Weakness, Weight change Eyes: Reports: As per HPI. Denies: Eye discharge, Eye pain, Photophobia, Vision change ENT: Reports: As per HPI. Denies: Congestion, Dental pain, Ear pain, Epistaxis, Hearing loss, Throat pain Respiratory: Reports: As per HPI. Denies: Cough, Dyspnea, Hemoptysis, Stridor, Wheezes Cardiovascular: Reports: As per HPI, Chest pain. Denies: Arrhythmia, Dyspnea on exertion, Edema, Murmurs, Orthopnea, Palpitations, Paroxysmal nocturnal dyspnea, Rheumatic Fever, Syncope Endocrine: Reports: As per HPI. Denies: Fatigue, Heat or cold intolerance, Polydipsia, Polyuria Gastrointestinal: Reports: As per HPI. Denies: Abdominal pain, Constipation, D iarrhea, Hematemesis, Hematochezia, Melena, Nausea, Vomiting Genitourinary: Reports: As per HPI. Denies: Dysuria, Frequency, Hematuria, Incontinence, Retention, Testicular pain, Testicular mass, Urgency Musculoskeletal: Reports: As per HPI. Denies: Arthralgia, Back pain, Gout, Joint swelling, Myalgia, Neck pain Skin: Reports: As per HPI. Denies: Bruising, Change in color, Change in hair/nails, Lesions, Pruritus, Rash Neurological: Reports: As per HPI. Denies: Abnormal gait, Confusion, Headache, Numbness, Paresthesias, Seizure, Tingling, Tremors, Vertigo, Weakness Psychiatric: Reports: As per HPI. Denies: Anxiety, Auditory hallucinations, Depression, Homicidal thoughts, Suicidal thoughts, Visual hallucinations Hematological/Lymphatic: Reports: As per HPI. 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) - GI Hx GI Disorders: No - Hx Genitourinary Disorders: No - ENDOCRINE Hx Endocrine Disorders: No - MUSCULOSKELETAL Hx Musculoskeletal Disorders: No - PSYCH Hx Psych Problems: No - HEMATOLOGY/ONCOLOGY Hx Hematology/Oncology Disorders: No Family Medical History Any Significant Family History?: No Family Hx Comment (NOT TO BE USED IN PLACE OF ITEMS BELOW): unknown Physical Exam - General General Appearance: Alert, Oriented x3, Cooperative, Mild distress - Head Head exam: Normal inspection - Eye Eye exam: Normal appearance, PERRL, EOMI Pupils: Normal accommodation - ENT ENT exam: Normal exam, Mucous membranes moist, Normal external ear exam, Normal orophraynx Ear exam: Normal external inspection. negative: External canal tenderness Nasal Exam: Normal inspection. negative: Discharge, Sinus tenderness Mouth exam: Normal external inspection, Tongue normal Teeth exam: Normal inspection. negative: Dental caries Throat exam: Normal inspection. negative: Tonsillar erythema, Tonsillar exudate - Neck Neck exam: Normal inspection, Full ROM. negative: Tenderness - Respiratory Respiratory exam: Normal lung sounds bilaterally. negative: Respiratory distress - Cardiovascular Cardiovascular Exam: Regular rate, Normal rhythm, Normal heart sounds - GI/Abdominal GI/Abdominal exam: Soft, Normal bowel sounds. negative: Tenderness - Rectal Rectal exam: Deferred - exam: Deferred - Extremities Extremities exam: Normal inspection, Full ROM, Normal capillary refill. negative: Tenderness - Back Back exam: Reports: Normal inspection, Full ROM. Denies: Muscle spasm, Rash noted, Tenderness - Neurological Neurological exam: Alert, CN II-XII intact, Normal gait, Oriented X3 - Psychiatric Psychiatric exam: Normal affect, Normal mood - Skin Skin exam: Dry, Intact, Normal color, Warm Course Vital Signs 01/29/19 01/29/19 01/29/19 20:55 21:12 21:27 Temperature 98 F 98.6 F Pulse Rate 63 Pulse Rate [ 64 [employer] ] Respiratory 18 20 Rate Blood Pressure 199/85 Blood Pressure 146/68 [Left Arm] Pulse Ox 96 92 L 01/29/19 01/29/19 01/30/19 21:35 22:58 00:08 Temperature Pulse Rate Pulse Rate [ 66 62 67 [employer] ] Respiratory 22 16 20 Rate Blood Pressure Blood Pressure 124/84 153/78 163/71 [Left Arm] Pulse Ox 93 L 94 L 94 L - Reevaluation(s) Reevaluation #1: 01/30/19 01:40 ntg did not help his pain. it spontaneously resolved later and is now 0/10 Medical Decision Making - Lab Data Result diagrams: 01/29/19 21:05 01/29/19 21:05 Lab Results 01/29/19 01/29/19 01/29/19 Range/Units 21:05 21:05 21:05 WBC 9.3 (4.2-12.2) K/uL RBC 5.12 (4.40-5.70) M/uL Hgb 15.2 (14.0-18.0) gm/dl Hct 44.2 (42.0-52.0) % MCV 86.3 (81-97) fl MCH 29.7 (27-33) pg MCHC 34.4 (32-36) g/dl RDW 13.6 (11.5-14.5) % Plt Count 219 (130-400) K/uL MPV 10.7 H (7.4-10.4) fl Gran % 71.9 (47-80) % Lymphocytes % 18.5 (16-45) % Monocytes % 7.6 (0-9) % Eosinophils % 1.6 (0-6) % Basophils % 0.4 (0-6) % Absolute Neutrophils 6.70 D-Dimer 0.73 H (0-0.59) mg/L FEU Sodium 141 (136-145) mmol/L Potassium 3.1 L (3.4-4.5) mmol/L Chloride 98 (98-107) mmol/L Carbon Dioxide 29.0 (22-29) mmol/L Anion Gap 14.0 (7-16) BUN 15 (8-23) mg/dL Creatinine 0.8 (0.7-1.2) mg/dL Estimated GFR > 60 mL/min Random Glucose 161 H (74-109) mg/dL Calcium 9.6 (8.8-10.2) mg/dL Total Bilirubin 0.70 (0.2-1.0) mg/dL AST 23 (10.0-50.0) U/L ALT 17 (<41) U/L Alkaline Phosphatase 28 L (40-129) U/L Creatine Kinase 108 (39-308) U/L CK-MB (CK-2) 3.2 (<6.73) ng/mL Troponin T < 0.010 (0-0.010) ng/mL NT-Pro-B Natriuret Pep 541.10 H (<125) pg/mL Total Protein 6.9 (6.6-8.7) g/dL Albumin 4.5 (4.0-5.0) g/dL Globulin 2.4 (1.4-4.8) gm/dL Albumin/Globulin Ratio 1.9 H (1.1-1.8) 01/30/19 Range/Units 00:45 WBC (4.2-12.2) K/uL RBC (4.40-5.70) M/uL Hgb (14.0-18.0) gm/dl Hct (42.0-52.0) % MCV (81-97) fl MCH (27-33) pg MCHC (32-36) g/dl RDW (11.5-14.5) % Plt Count (130-400) K/uL MPV (7.4-10.4) fl Gran % (47-80) % Lymphocytes % (16-45) % Monocytes % (0-9) % Eosinophils % (0-6) % Basophils % (0-6) % Absolute Neutrophils D-Dimer (0-0.59) mg/L FEU Sodium (136-145) mmol/L Potassium (3.4-4.5) mmol/L Chloride (98-107) mmol/L Carbon Dioxide (22-29) mmol/L Anion Gap (7-16) BUN (8-23) mg/dL Creatinine (0.7-1.2) mg/dL Estimated GFR mL/min Random Glucose (74-109) mg/dL Calcium (8.8-10.2) mg/dL Total Bilirubin (0.2-1.0) mg/dL AST (10.0-50.0) U/L ALT (<41) U/L Alkaline Phosphatase (40-129) U/L Creatine Kinase (39-308) U/L CK-MB (CK-2) (<6.73) ng/mL Troponin T < 0.010 (0-0.010) ng/mL NT-Pro-B Natriuret Pep (<125) pg/mL Total Protein (6.6-8.7) g/dL Albumin (4.0-5.0) g/dL Globulin (1.4-4.8) gm/dL Albumin/Globulin Ratio (1.1-1.8) Disposition Disposition: Discharge Clinical Impression: Chest pain Qualifiers: Chest pain type: unspecified Qualified Code(s): R07.9 - Chest pain, unspecified Disposition: Still a Patient at [facility] Decision to Admit: Admit from ER Decision to Admit Date: 01/30/19 Decision to Admit Time: 01:42 Quality - Quality Measures Quality Measures: N/A - Blood Pressure Screening Does Patient Have Any of the Following: Active Dx of HTN Blood Pressure Classification: Pre-Hypertensive BP Reading Systolic Measurement: 199 Diastolic Measurement: 85 Screening for High Blood Pressure: Patient Exclusion, Hx of HTN [G9744]
[2019-01-30] MEDS ORDERED: TAMSULOSIN HCL 0.4 MG CAP.ER.24H PO SCH (02:00)
--- NOTE | 2019-01-30 07:21 | RADIOLOGY REPORT ---
EXAM: AP PORTABLE SEMI-UPRIGHT CHEST HISTORY: LEFT SIDED CHEST PAIN AND DIAPHORESIS. PREVIOUS CVA. TECHNIQUE: AP portable semi-upright view of the chest was obtained. Comparison: 07/20/17. FINDINGS: The cardiomediastinal silhouette is stable. Mild pulmonary vascular congestion. Suggestion of mild right greater than left bibasilar atelectasis. No clear pleural effusion. IMPRESSION: SUGGESTION OF MILD PULMONARY VASCULAR CONGESTION AND RIGHT GREATER THAN LEFT BIBASILAR ATELECTASIS. [facility]: [id number] [facility]
--- NOTE | 2019-01-30 09:00 | CT ANGIOGRAM REPORT ---
EXAM: CT ANGIOGRAM OF THE CHEST WITH POST PROCESSING HISTORY: CHEST PAIN, SHORTNESS OF BREATH, AND ELEVATED D-DIMER. TECHNIQUE: Standard CT angiography of the chest was performed with post processing following the bolus administration of 90 ml of Omnipaque 350. Additional coronal and sagittal maximum intensity projection reformatted images were performed on an independent workstation under concurrent supervision. Comparison: Chest x-ray from the same date. FINDINGS: The heart is normal in size. Moderate coronary artery calcifications are present. the aorta is normal in caliber without dissection. The pulmonary arterial tree is normal. There is no pulmonary embolus. There is no mediastinal or hilar lymphadenopathy. There is very minor atelectasis or infiltrate within the lingula. Minor dependent atelectasis is also present bilaterally. There is no pneumothorax or effusion. A 5 mm subpleural nodule is present within the medial aspect of the left lung base. No other nodules are identified. A tiny hiatal hernia is present. Ingested food material is present within the stomach. There are a few tiny hypodensities within the liver which are too small to characterize, but suggestive of cysts. The upper abdomen is otherwise unremarkable. Degenerative changes are present within the spine. There is mild anterior wedging within several mid thoracic vertebral bodies which appear chronic. IMPRESSION: 1. NO EVIDENCE FOR PULMONARY EMBOLUS OR AORTIC DISSECTION. 2. MINOR ATELECTASIS OR INFILTRATE WITHIN THE LINGULA. 3. 5 MM NONCALCIFIED SUBPLEURAL NODULE WITHIN THE MEDIAL LEFT LOWER LOBE. A FOLLOW-UP CHEST CT IS RECOMMENDED IN TWELVE MONTHS TO CONFIRM STABILITY. 4. SMALL HIATAL HERNIA. 5. PROBABLE TINY HEPATIC CYSTS. JOB NUMBER: [id number] [facility]
[2019-01-30 09:38] LABS: CKMB 3.4 ng/mL (<6.73)
[2019-01-30] MEDS ORDERED: ASPIRIN 325 MG TAB ENTERIC-COATED PO SCH (10:00)
[2019-01-30] MEDS ORDERED: FLU VAC QS 2019-20 (INPT, 6MO+) 60MCG/0.5ML IM ONE (10:00)
[2019-01-30] MEDS ORDERED: ATENOLOL 50 MG TABLET PO SCH (10:00)
[2019-01-30] MEDS ORDERED: CHLORTHALIDONE 25 MG TABLET PO SCH (10:00)
[2019-01-30 17:13] LABS: CKMB 3.3 ng/mL (<6.73)
[2019-01-30] MEDS ORDERED: PANTOPRAZOLE SODIUM 40 MG TABLET PO ONE (17:35)
--- NOTE | 2019-01-30 17:36 | Discharge Note ---
VTE H&P Assessment - Risk for VTE Risk for VTE: Yes Risk Level: Moderate Risk Assessment Date: 01/30/19 Risk Assessment Time: 17:33 VTE Orders Placed or Will Be Placed: Yes Discharge Medications - Discharge Medications Prescriptions: Omeprazole 20 mg PO DAILY #30 tab. Home Medications: Ambulatory Orders Multivitamin [Multivitamins] 1 each PO DAILY tab 06/16/15 [Last Taken 01/20/18] Omeprazole 20 mg PO DAILY #30 tab. 01/30/19 [Last Taken Unknown] Discharge Note - Date Date of Discharge Note: 01/30/19 Disposition: Home, Self-Care Condition: (1) Good Additional Instructions: Appointment with Dr. Cunningham at [facility] on Tuesday, 02/02 at 10AM. Call [phone] if you need to reschedule. follow up with Dr Calabrese in 1-2 weeks and please give his daughter Dr Andersonryan phone number start omeprazole tomorrow one a day Referrals: JEFFRY CUNNINGHAM [Primary Care Provider] - Forms: Patient Portal Access
[2019-01-30] MEDS ORDERED: ENOXAPARIN 40 MG/0.4 ML SYR SQ SCH (17:45)
[2019-01-30] MEDS ORDERED: GABAPENTIN 100 MG CAPSULE PO SCH (22:00)
[2019-01-30] MEDS ORDERED: SIMVASTATIN 20 MG TABLET PO SCH (22:00)
[2019-01-31] MEDS ORDERED: TAMSULOSIN HCL 0.4 MG CAP.ER.24H PO SCH (06:00)
--- NOTE | 2019-01-31 14:31 | History and Physical Report ---
CHIEF COMPLAINT: Chest pain. HISTORY OF PRESENT ILLNESS: This 73-year-old male presented to the emergency department with chest pain that was going on all day. He was not specific on where he said but mostly in the epigastric area. He was seen by Dr. Jama in the emergency department and admitted for serial cardiac enzymes and further evaluation. He had a slightly elevated D-dimer in the emergency department, 0.73. CTA of the chest was negative for PE with an incidental nodule found and 3 sets of cardiac enzymes were negative. 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 He has had coronary artery disease with stents placed 2 years ago at [facility]. Hypertension, benign prostatic hyperplasia, hypercholesterolemia, restless leg syndrome. PAST SURGICAL HISTORY: Hip replacement in June 2014, heart stents 2 years ago. MEDICATIONS: 1. Tamsulosin 0.4 mg daily. 2. Pravachol 40 mg at h.s. 3. Multivitamin 1 a day. 4. Claritin 10 mg daily. 5. Gabapentin 200 mg at h.s. 6. Atenolol/chlorthalidone 1 b.i.d. 7. Aspirin 81 mg a day. ALLERGIES: No known drug allergies. FAMILY/PSYCHOSOCIAL HISTORY: No significant family history. He is a former smoker. He started smoking 41 years ago. No alcohol or drug use. REVIEW OF SYSTEMS: HEENT: Pupils are equal, round, and reactive to light and accommodation. Extraocular muscles are intact. Throat is clear. Nose is clear. Tympanic membranes are bradford. Neck: Supple. No jugular venous distention. No hepatojugular reflux. No carotid bruits. Heart/Respiratory: Clear to auscultation. Breath sounds equal bilaterally. Abdomen: No pain on palpation. No chest pain or abdominal pain. No vomiting or diarrhea or nausea. Genitourinary: No dysuria, hematuria, frequency, or burning on urination. Musculoskeletal: No joint or bone abnormalities. Neurological: No CVA, paralysis, or paresthesias. He does have a previous CVA of 30 years ago with paralysis of the right arm and partial weakness of the right leg with slurred speech and aphasia. Endocrine: No diabetes or thyroid disease. Integument: No rash, ulcers, change in moles, or yellow skin. PHYSICAL EXAMINATION: VITALS: Height 5 feet 8 inches, weight 196 pounds. Temperature 97.5, pulse 58, blood pressure 158/66, respiratory rate 18, pulse ox 96% on room air. HEENT: Pupils are equal, round, and reactive to light and accommodation. Extraocular muscles are intact. Fundoscopic exam is benign. Tympanic membranes are bradford. NECK: Supple. No jugular venous distention. No hepatojugular reflux. No carotid bruits. Thyroid is smooth. CARDIOVASCULAR: Regular rate and rhythm without murmurs, clicks, rubs, or gallops. RESPIRATORY: Clear to auscultation and percussion. ABDOMEN: Soft, nontender. No hepatosplenomegaly, no masses, no tenderness. Bowel sounds are active. No bruits. EXTREMITIES: No pitting edema. No cyanosis, no clubbing. Full range of motion. Peripheral pulses are good. BREASTS: Normal male breasts. RECTAL: Deferred. GENITALIA: Deferred. NEUROLOGIC: Cranial nerves II-XII not intact. He has a previous right-sided facial droop and expressive aphasia. Sensation is decreased on the right side. He has paralysis of the right arm where he holds it in a contracted position. Weakness in the right leg. Babinski positive on the right side. MENTAL STATUS: Alert and oriented x3. IMPRESSION: 1. Chest pain, atypical. 2. Possible gastroesophageal reflux disease. 3. History of a cerebrovascular accident 30 years ago in 1988. PLAN: Serial cardiac enzymes. Serial EKGs. Further evaluation. [facility]
--- NOTE | 2019-01-31 14:31 | Discharge Summary ---
DISCHARGE DIAGNOSES: 1. Atypical chest pain, no evidence of a myocardial infarction. 2. Gastroesophageal reflux disease, start omeprazole 20 mg once a day. 3. Past history of cerebrovascular accident 30 years ago in 1988, right arm and right leg partial paralysis with slurred speech. 4. Coronary artery disease with stents placed 2 years ago at [facility]. His current application security developer is Dr. Harrison. He has a slightly elevated D-dimer but the CTA was negative for a PE but on the CT scan it did show a nodule. They recommend repeating a CT scan in 12 months. He is currently pain free and asymptomatic and wants to go home. ATTENDING PHYSICIAN: Timothy Perez DO REASON FOR HOSPITALIZATION: This 73-year-old male presented to the emergency department with chest pain that lasted on and off all day. He was evaluated in the emergency department by Dr. Jama. He had no radiation, no shortness of breath, and no nausea or vomiting or sweating. difficult historian because of his previous stroke. He had a slightly elevated D-dimer in the ER which was 0.73, CTA which was negative for PE showing a nodule and radiologist recommended a repeat CT in 12 months. He was admitted for serial troponins which were negative x3. SIGNIFICANT FINDINGS: As stated, EKG showing normal sinus rhythm, no acute changes. WBC 9300, hemoglobin 15.2, D-dimer 0.73, potassium 3.1 and he was given 40 mEq of oral potassium, sodium 141, chloride 98, glucose 161 non-fasting, troponin x3 negative at less than 0.01, brain natriuretic peptide 541. The chest x-ray suggested mild pulmonary vascular congestion right greater than left, bibasilar atelectasis. The CT scan did not show that. It showed no atelectasis, a nodule, no PE on the CTA. EKG I have already mentioned had normal sinus rhythm with no acute changes x2. THERAPY PROVIDED: He was observed. court recording monitor. He is eating without any difficulties and he is feeling better. HOSPITAL COURSE: Uneventful, unremarkable. CONDITION ON DISCHARGE: Stable and improved. No chest pain. DISCHARGE INSTRUCTIONS: Follow up with Dr. Mckeon, his primary doctor, on 02/02/2019. Also to follow up with Dr. Harrison, his application security developer, in 1 week. They will call and set up an appointment with the specialty clinic. Continue his home medications of tamsulosin 0.4 mg daily, pravastatin 40 mg at h.s., multivitamin 1 a day, Claritin 10 mg daily, gabapentin 200 mg at h.s., atenolol/chlorthalidone 50/50 one b.i.d., aspirin 81 mg a day. Also adding on omeprazole 20 mg daily because of gastroesophageal reflux. Discussed with the daughter Meera and the patient that more testing may be necessary after seeing Cardiology but at this time stable to go home to be evaluated as an outpatient. [facility]
== END 2019-01-30 18:18 | disposition home or self-care (01) ==
LOC: ER 20:50 → MEDSURG 01-30 02:03
PROVIDERS: ADMIT Emergency Medicine; ATTEND Emergency Medicine
DX: R07.9 Chest pain, unspecified (principal); I10 Essential (primary) hypertension; R47.01 Aphasia; Z87.891 Personal history of nicotine dependence; Z95.5 Presence of coronary angioplasty implant and graft; Z98.61 Coronary angioplasty status; Z86.73 Personal history of transient ischemic attack (TIA), and cerebral infarction without residual deficits; Z23 Encounter for immunization
CPT/HCPCS: 99285 ×2; 82550; 85025; 82553 ×2; 80053; 84484 ×2; 85379; 83880; 71045; 71275; 93005 ×2; 93010 ×2; 90686; G0378; Q9967; 99236; J1650